=== PATIENT | female | born 1975 | race Caucasian/White ===

== ENCOUNTER 2020-03-24 13:18 | Emergency (ER) | payer SELFPAY ==
[2020-03-24] MEDS ORDERED: LIDOCAINE 1% 20 ML MDV ONE (13:42)
--- NOTE | 2020-03-24 14:09 | EDPHYS ---
Physician Documentation [facility] Name: Shelley Ritter Age: 44 yrs Sex: Female : 1975 Arrival Date: 03/24/2020 Time: 13:22 Bed 5 Private MD: ED Physician Donato Francisco HPI: 03/24 14:04 This 44 yrs old Female presents to ER via Ambulatory with complaints of jr8 Abscess. 14:04 The patient presents with an abscess of the right leg. Description: The affected area jr8 is moderate sized, well demarcated, erythematous, fluctuant, warm. Onset: The symptoms/episode began/occurred gradually, 5 day(s) ago. Possible cause(s): unknown. Associated signs and symptoms: The patient has no apparent associated signs or symptoms. Modifying factors: the symptoms are alleviated by nothing, the symptoms are aggravated by walking, sitting, squeezing the lesion and expressing the contents, touching. Severity of symptoms: At their worst the symptoms were moderate, in the emergency department the symptoms are unchanged. The patient has not experienced similar symptoms in the past. The patient has not recently seen a physician. Historical: - Allergies: 13:32 Tylenol-Codeine #3; ll1 - PMHx: 13:32 Hypothyroidism; ll1 - PSHx: 13:32 None; ll1 - Immunization history:: Flu vaccine is not up to date. - Social history:: Smoking status: Patient reports the use of cigarette tobacco products, denies chronic smoking, but will smoke occasionally, Patient uses alcohol, only on a social basis. Patient/guardian denies using street drugs. ROS: 14:04 Eyes: Negative for injury, pain, redness, and discharge, ENT: Negative for injury, jr8 pain, and discharge, Neck: Negative for injury, pain, and swelling, Cardiovascular: Negative for chest pain, palpitations, and edema, Respiratory: Negative for shortness of breath, cough, wheezing, and pleuritic chest pain, Abdomen/GI: Negative for abdominal pain, nausea, vomiting, diarrhea, and constipation, Back: Negative for injury and pain, MS/Extremity: Negative for injury and deformity, Neuro: Negative for headache, weakness, numbness, tingling, and seizure. 14:04 Skin: Positive for erythema, swelling. Exam: 14:04 Eyes: Pupils equal round and reactive to light, extra-ocular motions intact. Lids and jr8 lashes normal. Conjunctiva and sclera are non-icteric and not injected. Cornea within normal limits. Periorbital areas with no swelling, redness, or edema. ENT: Nares patent. No nasal discharge, no septal abnormalities noted. Tympanic membranes are normal and external auditory canals are clear. Oropharynx with no redness, swelling, or masses, exudates, or evidence of obstruction, uvula midline. Mucous membranes moist. Neck: Trachea midline, no thyromegaly or masses palpated, and no cervical lymphadenopathy. Supple, full range of motion without nuchal rigidity, or vertebral point tenderness. No Meningismus. Cardiovascular: Regular rate and rhythm with a normal S1 and S2. No gallops, murmurs, or rubs. Normal PMI, no JVD. No pulse deficits. Respiratory: Lungs have equal breath sounds bilaterally, clear to auscultation and percussion. No rales, rhonchi or wheezes noted. No increased work of breathing, no retractions or nasal flaring. Abdomen/GI: Soft, non-tender, with normal bowel sounds. No distension or tympany. No guarding or rebound. No evidence of tenderness throughout. Back: No spinal tenderness. No costovertebral tenderness. Full range of motion. MS/ Extremity: Pulses equal, no cyanosis. Neurovascular intact. Full, normal range of motion. Neuro: Awake and alert, GCS 15, oriented to person, place, time, and situation. Cranial nerves II-XII grossly intact. Motor strength 5/5 in all extremities. Sensory grossly intact. Cerebellar exam normal. Normal gait. 14:04 Skin: abscess, that is moderate sized, approximately 5 cm(s), with fluctuance, that is mild, with induration, with surrounding cellulitis, that is mild. Vital Signs: 13:30 BP 125 / 89; Pulse 96; Resp 18; Temp 98.0; Pulse Ox 100% ; Pain 8/10; ll1 Procedures: 14:04 I \T\ D: Incision and drainage was performed for an abscess of the right medial aspect of jr8 right calf Prepped with Betadine, Anesthetized with 10 ml's 1% Lidocaine. Incised with #11 blade. Drained moderate amount purulent fluid. serosanguinous fluid. bloody fluid. Loculations removed. Abscess cavity explored. Packed with iodoform gauze, Dressing: sterile 4x4 gauze, the patient tolerated the procedure well. MDM: 13:23 Patient medically screened. jr8 14:04 Data reviewed: vital signs, nurses notes, and as a result, I will discharge patient. jr8 Data interpreted: Pulse oximetry: on room air is 100 %. Interpretation: normal. Counseling: I had a detailed discussion with the patient and/or guardian regarding: the historical points, exam findings, and any diagnostic results supporting the discharge/admit diagnosis, the need for outpatient follow up, a general surgeon, to return to the emergency department if symptoms worsen or persist or if there are any questions or concerns that arise at home. 03/24 14:07 Order name: Incision \T\ Drainage Setup; Complete Time: 14:07 jl7 Administered Medications: 13:45 Drug: Lidocaine (1 %) 1 application {Note: administered by LIANET Vance.} Volume: 20 ml; jl7 Route: Infiltration; 14:11 Drug: TORadol - Ketorolac 15 mg Route: IM; Site: left deltoid; jl7 Disposition: 17:29 Co-signature as Attending Physician, Donato Francisco MD I agree with the assessment and kdr plan of care. Disposition: 03/24/20 14:07 Discharged to Home. Impression: Cutaneous abscess of right lower limb. - Condition is Stable. - Discharge Instructions: Skin Abscess, Incision and Drainage. - Prescriptions for Bactrim DS 800- 160 mg Oral Tablet - take 1 tablet by ORAL route every 12 hours for 10 days; 20 tablet. - Medication Reconciliation Form, Thank You Letter, Antibiotic Education, Prescription Opioid Use form. - Follow up: Emergency Department; When: 48 Hours; Reason: Wound Recheck, Recheck today's complaints, Continuance of care, Re-evaluation by your physician. - Problem is new. - Symptoms have improved. Signatures: Donato Francisco MD MD [facility] Rajiv Gallegos PA PA jr8 Meri Shafer RN RN jl7 Hector Beckman RN RN ll1 Corrections: (The following items were deleted from the chart) 14:37 14:07 03/24/2020 14:07 Discharged to Home. Impression: Cutaneous abscess of right lower jl7 limb. Condition is Stable. Forms are Medication Reconciliation Form, Thank You Letter, Antibiotic Education, Prescription Opioid Use. Follow up: Emergency Department; When: 48 Hours; Reason: Wound Recheck, Recheck today's complaints, Continuance of care, Re-evaluation by your physician. Problem is new. Symptoms have improved. jr8
--- NOTE | 2020-03-24 14:09 | ER ---
Nurse's Notes [facility] Name: Shelley Ritter Age: 44 yrs Sex: Female : 1975 Arrival Date: 03/24/2020 Time: 13:22 Bed 5 Private MD: Diagnosis: Cutaneous abscess of right lower limb Presentation: 03/24 13:30 Chief complaint: Patient states: Right lower leg abscess for 4-5 days. No fever. + ll1 drainage. Coronavirus screen: Proceed with normal triage. Patient denies a cough. Patient denies shortness of breath or difficulty breathing. Patient denies measured and/or subjective temperature greater than 100.4F prior to today's visit. Patient denies travel on a cruise ship or to a country the [facility] currently lists as an affected area. Patient denies contact with known and/or suspected case of COVID-19. Ebola Screen: Patient denies travel to an Ebola-affected area in the 21 days before illness onset. Initial Sepsis Screen: Does the patient meet any 2 criteria? HR > 90 bpm. Yes Does the patient have a suspected source of infection? Yes: Skin breakdown/wound. Risk Assessment: Do you want to hurt yourself or someone else? Patient reports no desire to harm self or others. Onset of symptoms was March 19, 2020. 13:30 Method Of Arrival: Ambulatory ll1 13:30 Acuity: HUGO 4 ll1 Historical: - Allergies: 13:32 Tylenol-Codeine #3; ll1 - PMHx: 13:32 Hypothyroidism; ll1 - PSHx: 13:32 None; ll1 - Immunization history:: Flu vaccine is not up to date. - Social history:: Smoking status: Patient reports the use of cigarette tobacco products, denies chronic smoking, but will smoke occasionally, Patient uses alcohol, only on a social basis. Patient/guardian denies using street drugs. Screenin:25 Abuse screen: Denies threats or abuse. Denies injuries from another. Nutritional jl7 screening: No deficits noted. Tuberculosis screening: No symptoms or risk factors identified. Fall Risk None identified. Assessment: 13:25 General: Appears in no apparent distress. uncomfortable, Behavior is calm, cooperative, jl7 appropriate for age. Pain: Complains of pain in medial aspect of right calf Pain currently is 8 out of 10 on a pain scale. Neuro: Level of Consciousness is awake, alert, obeys commands, Oriented to person, place, time, situation. Cardiovascular: Patient's skin is warm and dry. Respiratory: Airway is patent Respiratory effort is even, unlabored, Respiratory pattern is regular, symmetrical. Derm: Skin is pink, warm \T\ dry. Abscess located on medial aspect of right calf is half dollar sized, is hot to touch, is red. Vital Signs: 13:30 BP 125 / 89; Pulse 96; Resp 18; Temp 98.0; Pulse Ox 100% ; Pain 8/10; ll1 ED Course: 13:22 Patient arrived in ED. mr 13:23 Meri Shafer, VIJAY is Primary Nurse. jared 13:23 Rajiv Gallegos PA is PHCP. jr8 13:23 Donato Francisco MD is Attending Physician. jr8 13:25 Patient has correct armband on for positive identification. Bed in low position. Call jl7 light in reach. Side rails up X 1. Pulse ox on. NIBP on. 13:31 Triage completed. ll1 13:32 Arm band placed on Patient placed in an exam room, on a stretcher. ll1 14:04 Assist provider with I \T\ D: of an abscess on right Calf Set up I\T\D tray. Performed by missael MARTINI Wound packed. iodoform gauze, Patient tolerated poorly. 14:37 Patient did not have IV access during this emergency room visit. jl7 Administered Medications: 13:45 Drug: Lidocaine (1 %) 1 application {Note: administered by LIANET Vance.} Volume: 20 ml; jared Route: Infiltration; 14:11 Drug: TORadol - Ketorolac 15 mg Route: IM; Site: left deltoid; jared Outcome: 14:07 Discharge ordered by . jr8 14:36 Discharged to home ambulatory. jl7 14:36 Condition: stable 14:36 Discharge instructions given to patient, Instructed on discharge instructions, follow up and referral plans. medication usage, Demonstrated understanding of instructions, follow-up care, medications, Prescriptions given X 1. 14:37 Patient left the ED. [email or web address] Signatures: Emilee Henry mr Rajiv Gallegos PA PA jr8 Meri Shafer RN RN jl7 Hector Beckman RN RN 1 Corrections: (The following items were deleted from the chart) 13:31 Chief complaint: jl7 jl7
[2020-03-24] MEDS ORDERED: KETOROLAC 30 MG/ML INJ ONE (14:15)
[2020-03-24 14:43] VITALS: BP 125/89; TEMP 98; O2SAT 100
== END 2020-03-24 14:37 | disposition home or self-care (01) ==
LOC: ER 13:18
PROC: 0J9N0ZZ Drainage of Right Lower Leg Subcutaneous Tissue and Fascia, Open Approach (ICD-10-PCS; principal; 2020-03-24)
DX: L02.415 Cutaneous abscess of right lower limb (principal); Z88.6 Allergy status to analgesic agent; F17.210 Nicotine dependence, cigarettes, uncomplicated
CPT/HCPCS: 96372; 99284

== ENCOUNTER 2020-05-19 15:05 | Emergency (ER) | payer SELFPAY, OTHER ==
--- NOTE | 2020-05-19 16:04 | ER ---
Nurse's Notes [facility] Name: Shelley Ritter Age: 44 yrs Sex: Female : 1975 Arrival Date: 05/19/2020 Time: 15:09 Bed 8 Private MD: Diagnosis: Dermatitis, unspecified Presentation: 05/19 15:11 Chief complaint: Patient states: Rash with itching to entire body for 3 days. Cough and ll1 SOB for 3 days. No fever. Coronavirus screen: Surgical mask placed on patient. Patient moved to private room, placed in contact and droplet isolation with eye protection until further assessment. Patient reports a cough. Patient reports shortness of breath or difficulty breathing. Patient denies measured and/or subjective temperature greater than 100.4F prior to today's visit. Patient denies travel on a cruise ship or to a country the [facility] currently lists as an affected area. Patient denies contact with known and/or suspected case of COVID-19. Ebola Screen: Patient denies travel to an Ebola-affected area in the 21 days before illness onset. Initial Sepsis Screen: Does the patient meet any 2 criteria? HR > 90 bpm. No. Patient's initial sepsis screen is negative. Does the patient have a suspected source of infection? Yes: Skin breakdown/wound. Risk Assessment: Do you want to hurt yourself or someone else? Patient reports no desire to harm self or others. Onset of symptoms was May 14, 2020. 15:11 Method Of Arrival: Ambulatory ll1 15:11 Acuity: HUGO 3 ll1 Historical: - Allergies: 15:13 Tylenol-Codeine #3; ll1 15:13 mayonaise; ll1 - PMHx: 15:13 Hypothyroidism; ll1 - PSHx: 15:13 None; ll1 - Immunization history:: Flu vaccine is not up to date. - Social history:: Smoking status: Patient reports the use of cigarette tobacco products, denies chronic smoking, but will smoke occasionally, Patient uses alcohol, only on a social basis. Patient/guardian denies using street drugs. Screenin:51 Abuse screen: Denies threats or abuse. Nutritional screening: No deficits noted. em Tuberculosis screening: No symptoms or risk factors identified. Fall Risk None identified. Assessment: 16:26 General: Appears in no apparent distress. uncomfortable, Behavior is calm, cooperative, ph appropriate for age, Denies fever. Pain: Complains of pain in right arm and left arm. Neuro: Level of Consciousness is awake, alert, obeys commands, Oriented to person, place, time, situation. Respiratory: Reports cough that is Airway is patent Respiratory effort is even, unlabored, Denies shortness of breath. Derm: Skin is healthy with good turgor, Skin is pink, warm \T\ dry. Rash noted that is macular, itchy, papular, red, urticaria, on right arm and left arm. Vital Signs: 15:11 Pulse 112; Resp 18; Temp 98.0; Pulse Ox 100% ; Pain 9/10; ll1 15:14 BP 100 / 67; ll1 ED Course: 15:09 Patient arrived in ED. ll1 15:13 Triage completed. ll1 15:14 Arm band placed on. 1 15:16 Haydee Zhao RN is Primary Nurse. ph 15:22 Cas Heard PA is PHCP. [facility] 15:22 Umesh Herrera MD is Attending Physician. [facility] 15:51 Patient has correct armband on for positive identification. Bed in low position. Call em light in reach. 16:27 No provider procedures requiring assistance completed. Patient did not have IV access ph during this emergency room visit. Administered Medications: 16:10 Drug: Decadron 10 mg Route: IM; Site: right deltoid; ph 16:25 Follow up: Response: No adverse reaction ph 16:20 Drug: hydrOXYzine 25 mg Route: PO; ph 16:25 Follow up: Response: No adverse reaction ph Outcome: 16:03 Discharge ordered by . [facility] 16:27 Discharged to home ambulatory. ph 16:27 Condition: good 16:27 Discharge instructions given to patient, Instructed on discharge instructions, follow up and referral plans. medication usage, Demonstrated understanding of instructions, follow-up care, medications, Prescriptions given X 2. 16:27 Patient left the ED. ph Signatures: Cas Heard PA PA jmm Munoz, Edgar, RN RN Haydee Zhao RN RN ph Lewis, Lynsay, RN RN 1 Corrections: (The following items were deleted from the chart) 15:21 15:11 Coronavirus screen: Proceed with normal triage. Patient reports a cough. Patient ll1 reports shortness of breath or difficulty breathing. Patient denies measured and/or subjective temperature greater than 100.4F prior to today's visit. Patient denies travel on a cruise ship or to a country the [facility] currently lists as an affected area. Patient denies contact with known and/or suspected case of COVID-19. ll1
--- NOTE | 2020-05-19 16:04 | EDPHYS ---
Physician Documentation [facility] Name: Shelley Ritter Age: 44 yrs Sex: Female : 1975 Arrival Date: 05/19/2020 Time: 15:09 Bed 8 Private MD: ED Physician Umesh Herrera HPI: 05/19 15:53 This 44 yrs old Female presents to ER via Ambulatory with complaints of Rash. jmm 15:53 The patient's rash thought to be caused by Dermatitis. The rash can be described as jmm erythematous. Onset: The symptoms/episode began/occurred gradually, 5 day(s) ago. Associated signs and symptoms: Pertinent positives: SOB, Pertinent negatives: swelling of lips, swelling of throat, swelling of tongue. This is a 44 year old female with a history of hypothyroidism that presents to the ED with complaints of diffuse rash beginning this past Sunday after pulling weeds. Patient has used OTC medications with no relief. Developed SOB today. Denies vomiting. . Historical: - Allergies: 15:13 Tylenol-Codeine #3; ll1 15:13 mayonaise; ll1 - PMHx: 15:13 Hypothyroidism; ll1 - PSHx: 15:13 None; ll1 - Immunization history:: Flu vaccine is not up to date. - Social history:: Smoking status: Patient reports the use of cigarette tobacco products, denies chronic smoking, but will smoke occasionally, Patient uses alcohol, only on a social basis. Patient/guardian denies using street drugs. ROS: 15:53 Constitutional: Negative for fever, chills, and weight loss, Cardiovascular: Negative jmm for chest pain, palpitations, and edema, Respiratory: Negative for shortness of breath, cough, wheezing, and pleuritic chest pain, Abdomen/GI: Negative for abdominal pain, nausea, vomiting, diarrhea, and constipation. 15:53 Skin: Positive for rash. 15:53 All other systems are negative. Exam: 15:53 Constitutional: This is a well developed, well nourished patient who is awake, alert, jmm and in no acute distress. Head/Face: atraumatic. Eyes: EOMI, no conjunctival erythema appreciated ENT: Moist Mucus Membranes Neck: Trachea midline, Supple Chest/axilla: Normal chest wall appearance and motion. Cardiovascular: Regular rate and rhythm. No edema appreciated Respiratory: Normal respirations, no respiratory distress appreciated Abdomen/GI: Non distended, soft Back: Normal ROM 15:53 MS/ Extremity: Moves all extremities, no obvious deformities appreciated, no edema noted to the lower extremities Neuro: Awake and alert, normal gait Psych: Behavior is normal, Mood is normal, Patient is cooperative and pleasant 15:53 Skin: contact dermatitis, and is diffusely located. Vital Signs: 15:11 Pulse 112; Resp 18; Temp 98.0; Pulse Ox 100% ; Pain 9/10; ll1 15:14 BP 100 / 67; ll1 MDM: 15:48 Patient medically screened. [facility] 16:01 Data reviewed: vital signs, nurses notes. Counseling: I had a detailed discussion with sherron the patient and/or guardian regarding: the historical points, exam findings, and any diagnostic results supporting the discharge/admit diagnosis, the need for outpatient follow up, to return to the emergency department if symptoms worsen or persist or if there are any questions or concerns that arise at home. ED course: Patient is alert and non toxic in appearance in the ED. Patient is advised to follow up with pcp and otherwise given strict return precautions. Patient understood and agrees with the plan of care. . Administered Medications: 16:10 Drug: Decadron 10 mg Route: IM; Site: right deltoid; ph 16:25 Follow up: Response: No adverse reaction ph 16:20 Drug: hydrOXYzine 25 mg Route: PO; ph 16:25 Follow up: Response: No adverse reaction ph Disposition: 16:40 Co-signature as Attending Physician, Umesh Herrera MD. rn Disposition: 05/19/20 16:03 Discharged to Home. Impression: Dermatitis, unspecified. - Condition is Stable. - Discharge Instructions: Contact Dermatitis. - Prescriptions for Hydroxyzine HCl 25 mg Oral Tablet - take 1 tablet by ORAL route every 6 hours As needed; 30 tablet. Prednisone 20 mg Oral Tablet - take 1 tablet by ORAL route once daily for 12 days Please take 3 tabs a day for 3 days, then 2 tabs a day for 3 days, then 1 tab a day for 3 days, then 1/2 tab a day for 3 days; 20 tablet. - Medication Reconciliation Form, Thank You Letter, Antibiotic Education, Prescription Opioid Use form. - Follow up: Private Physician; When: 2 - 3 days; Reason: Recheck today's complaints, Continuance of care, Re-evaluation by your physician. Signatures: Cas Heard PA PA jmm Nieto, Roman, MD MD rn Pavel, VIJAY Hubbard RN ph Hector Beckman RN RN ll1 Corrections: (The following items were deleted from the chart) 16:27 16:03 05/19/2020 16:03 Discharged to Home. Impression: Dermatitis, unspecified. ph Condition is Stable. Forms are Medication Reconciliation Form, Thank You Letter, Antibiotic Education, Prescription Opioid Use. Follow up: Private Physician; When: 2 - 3 days; Reason: Recheck today's complaints, Continuance of care, Re-evaluation by your physician. sherron
[2020-05-19] MEDS ORDERED: dexAMETHasone 10 MG/ML VIAL ONE (16:19)
[2020-05-19] MEDS ORDERED: hydrOXYzine HCL 25 MG TAB ONE (16:27)
[2020-05-19 19:03] VITALS: TEMP 98; O2SAT 100
[2020-05-19 19:05] VITALS: BP 100/67
== END 2020-05-19 16:27 | disposition home or self-care (01) ==
LOC: ER 15:05
DX: L30.9 Dermatitis, unspecified (principal); E03.9 Hypothyroidism, unspecified; F17.210 Nicotine dependence, cigarettes, uncomplicated; Z88.5 Allergy status to narcotic agent; Z91.018 Allergy to other foods
CPT/HCPCS: 96372; 99283; J1100

== ENCOUNTER 2022-04-25 11:45 | Emergency (ER) | payer SELFPAY ==
[2022-04-25] MEDS ORDERED: TETANUS & DIPHTHERIA TOX,ADULT 0.5 ML VIAL ONE (12:35)
[2022-04-25] MEDS ORDERED: LIDOCAINE 1% MPF 5 ML VIAL ONE (12:35)
--- NOTE | 2022-04-25 13:35 | EDPHYS ---
Physician Documentation [facility] Name: Shelley Ritter Age: 46 yrs Sex: Female : 1975 Arrival Date: 04/25/2022 Time: 12:02 Bed 16 Private MD: ED Physician Alex Echeverria HPI: 04/25 12:27 This 46 yrs old Female presents to ER via EMS with complaints of abscess to right pm1 buttocks. 12:27 The patient presents with an abscess of the right gluteus josué. Description: raised. pm1 Onset: The symptoms/episode began/occurred 3 day(s) ago. Possible cause(s): unknown. Associated signs and symptoms: Pertinent positives: swelling, Pertinent negatives: discharge, drainage, erythema, fever. Modifying factors: the symptoms are alleviated by nothing, the symptoms are aggravated by sitting, squeezing the lesion and expressing the contents, touching. Severity of symptoms: in the emergency department the symptoms are actually worse. The patient has experienced a previous episode, last year, right lower leg. The patient has not recently seen a physician. Patient and her significant other were squatting in a home that was unlocked at the front door. Police remove the patient's from the house and the police officers called the ambulance for a couple who were complaining of right chronic leg wounds due to lymphedema and right buttocks abscess. The patient is currently complaining of right buttocks abscess present for 3 days. . Historical: - Allergies: 12:32 mayonaise; ph 12:32 Tylenol-Codeine #3; ph - PMHx: 12:32 Hypothyroidism; ph - Immunization history:: Adult Immunizations unknown. - Social history:: Smoking status: Reported history of juuling and/or vaping. ROS: 12:39 Constitutional: Negative for fever, chills, and weight loss, Cardiovascular: Negative pm1 for chest pain, palpitations, and edema, Respiratory: Negative for shortness of breath, cough, wheezing, and pleuritic chest pain, Abdomen/GI: Negative for abdominal pain, nausea, vomiting, diarrhea, and constipation, MS/Extremity: Negative for injury and deformity. 12:39 Neuro: Negative for headache, weakness, numbness, tingling, and seizure. 12:39 Skin: Positive for swelling, possible abscess to right buttocks. 12:39 All other systems are negative. Exam: 12:39 Constitutional: This is a well developed, well nourished patient who is awake, alert, pm1 and in no acute distress. Head/Face: Normocephalic, atraumatic. 12:39 MS/ Extremity: Pulses equal, no cyanosis. Neurovascular intact. Full, normal range of motion. 12:39 Cardiovascular: Exam negative for acute changes, Rate: normal, Rhythm: regular, Pulses: no pulse deficits are appreciated. 12:39 Respiratory: Exam negative for acute changes, respiratory distress, shortness of breath. 13:27 Skin: Appearance: normal except for affected area, phlegmon. No abscess. Needle pm1 aspiration negative and wound deroofed and discharge present with expressing. 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 Vital Signs: 12:10 BP 158 / 99; Pulse 76; Resp 18; Temp 98.0; Pulse Ox 99% on R/A; Weight 62.14 kg; Height ph 5 ft. 3 in. (160.02 cm); 14:30 BP 142 / 89; Pulse 72; Resp 18; Temp 98.0; Pulse Ox 99% on R/A; ph 12:10 Body Mass Index 24.27 (62.14 kg, 160.02 cm) ph MDM: 12:06 Patient medically screened. pm1 13:27 Data reviewed: vital signs. Data interpreted: Pulse oximetry: on room air is 99 %. pm1 Interpretation: normal. Counseling: I had a detailed discussion with the patient and/or guardian regarding: the historical points, exam findings, and any diagnostic results supporting the discharge/admit diagnosis, the need for outpatient follow up, a family practitioner, to return to the emergency department if symptoms worsen or persist or if there are any questions or concerns that arise at home. Administered Medications: 14:00 Drug: Tetanus-Diphtheria Toxoid Adult 0.5 ml {Termite Inspector: [employer]. Exp: ph 02/04/2024. Lot #: [id number]. } Route: IM; Site: left deltoid; 14:30 Follow up: Response: No adverse reaction ph 14:31 Not Given (Other Intervention Used): Lidocaine (1 %) 5 ml 5 ml Infiltration once; to ph bedside Disposition: 22:01 Co-signature as Attending Physician, Alex Echeverria DO I was immediately available on-site ms3 in the Emergency Department for consultation in the care of the patient. . Disposition Summary: 04/25/22 13:34 Discharge Ordered Location: Home pm1 Problem: new pm1 Symptoms: have improved pm1 Condition: Stable pm1 Diagnosis - Phlegmon, left buttocks pm1 Followup: pm1 - With: Emergency Department - When: As needed - Reason: Recheck today's complaints, Continuance of care, Re-evaluation by your physician Followup: pm1 - With: Private Physician - When: 2 - 3 days - Reason: Recheck today's complaints, Continuance of care, Re-evaluation by your physician Discharge Instructions: - Discharge Summary Sheet pm1 - Skin Abscess pm1 Forms: - Medication Reconciliation Form pm1 - Thank You Letter pm1 - Antibiotic Education pm1 - Prescription Opioid Use pm1 Prescriptions: - Bactrim DS 800-160 mg Oral Tablet - take 1 tablet by ORAL route every 12 hours for 10 days; 20 tablet; Refills: 0, pm1 Product Selection Permitted - Diclofenac Sodium 75 mg Oral tablet,delayed release (DR/EC) - take 1 tablet by ORAL route 2 times per day As needed; 30 tablet; Refills: 0, pm1 Product Selection Permitted Signatures: Haydee Zhao, RN RN Diego Choi NP BLEACHING MACHINE OPERATOR pm1 Alex Echeverria DO DO ms3
--- NOTE | 2022-04-25 13:35 | ER ---
Nurse's Notes [facility] Name: Shelley Ritter Age: 46 yrs Sex: Female : 1975 Arrival Date: 04/25/2022 Time: 12:02 Bed 16 Private MD: Diagnosis: Phlegmon, left buttocks Presentation: 04/25 12:10 Chief complaint: EMS states: EMS called by PD who found pt and SO staying in abandoned apartment, c/o abscess to R buttock, VSS. Coronavirus screen: Vaccine status: Patient reports receiving the 2nd dose of the covid vaccine. Ebola Screen: No symptoms or risks identified at this time. Initial Sepsis Screen: Does the patient meet any 2 criteria? No. Patient's initial sepsis screen is negative. Does the patient have a suspected source of infection? No. Patient's initial sepsis screen is negative. Risk Assessment: Do you want to hurt yourself or someone else? Patient reports no desire to harm self or others. Onset of symptoms was April 25, 2022. 12:10 Method Of Arrival: EMS: [facility] ph 12:10 Acuity: HUGO 4 ph Triage Assessment: 12:33 General: Appears in no apparent distress. Behavior is cooperative, appropriate for age, ph anxious. Pain: Complains of pain in right gluteus josué. Neuro: No deficits noted. Respiratory: No deficits noted. Derm: Skin is healthy with good turgor, Skin is pink, warm \T\ dry. Abscess located on right gluteus josué is quarter sized, has no drainage, is red, is raised. Musculoskeletal: Circulation, motion, and sensation intact. Range of motion: intact in all extremities. Historical: - Allergies: 12:32 mayonaise; ph 12:32 Tylenol-Codeine #3; ph - PMHx: 12:32 Hypothyroidism; ph - Immunization history:: Adult Immunizations unknown. - Social history:: Smoking status: Reported history of juuling and/or vaping. Screenin:32 Abuse screen: Denies threats or abuse. Denies injuries from another. Nutritional ph screening: No deficits noted. Tuberculosis screening: No symptoms or risk factors identified. Fall Risk None identified. Assessment: 13:30 General: SEE TRIAGE ASSESSMENT. ph Vital Signs: 12:10 BP 158 / 99; Pulse 76; Resp 18; Temp 98.0; Pulse Ox 99% on R/A; Weight 62.14 kg; Height ph 5 ft. 3 in. (160.02 cm); 14:30 BP 142 / 89; Pulse 72; Resp 18; Temp 98.0; Pulse Ox 99% on R/A; ph 12:10 Body Mass Index 24.27 (62.14 kg, 160.02 cm) ph ED Course: 12:02 Patient arrived in ED. iw 12:03 Diego Garrett NP is PHCP. pm1 12:03 Alex Echeverria DO is Attending Physician. pm1 12:10 Haydee Zhao RN is Primary Nurse. ph 12:32 Triage completed. ph 12:32 Arm band placed on Patient placed in an exam room. ph 12:33 Patient has correct armband on for positive identification. Bed in low position. Call light in reach. 13:00 Assist provider with I \T\ D: of an abscess on left buttock Set up I\T\D tray. Performed by Diego Garrett NP Dressing with 4X4s, Patient tolerated poorly. Patient did not have IV access during this emergency room visit. Administered Medications: 14:00 Drug: Tetanus-Diphtheria Toxoid Adult 0.5 ml {Orange [employer]er: [employer]. Exp: ph 02/04/2024. Lot #: [id number]. } Route: IM; Site: left deltoid; 14:30 Follow up: Response: No adverse reaction ph 14:31 Not Given (Other Intervention Used): Lidocaine (1 %) 5 ml 5 ml Infiltration once; to bedside Medication: 12:33 VIS not applicable for this client. ph Outcome: 13:34 Discharge ordered by . pm1 14:30 Discharged to home ambulatory. ph 14:30 Condition: good 14:30 Discharge instructions given to patient, Instructed on discharge instructions, follow up and referral plans. medication usage, Demonstrated understanding of instructions, follow-up care, medications, Prescriptions given X 2. 14:31 Patient left the ED. ph Signatures: Elis Francisco RN RN Haydee Zhao RN RN ph Marinas, Patrick, [employer] SALES SERVICE PROFESSIONAL pm1
[2022-04-25 14:39] VITALS: BP 158/99; TEMP 98; O2SAT 99
== END 2022-04-25 14:31 | disposition home or self-care (01) ==
LOC: ER 11:45
DX: L02.31 Cutaneous abscess of buttock (principal); Z88.5 Allergy status to narcotic agent; Z91.018 Allergy to other foods
CPT/HCPCS: 90471; 90714; 99284

== ENCOUNTER 2023-05-13 02:01 | Emergency (ER) | payer SELFPAY ==
[2023-05-13] MEDS ORDERED: SMZ./TMP. 800/160 MG TABLET ONE (03:52)
[2023-05-13] MEDS ORDERED: HYDROCODONE/APAP 10/325 TAB ONE (03:52)
[2023-05-13] MEDS ORDERED: CEFTRIAXONE 1000 MG/VIAL ONE (03:52)
[2023-05-13] MEDS ORDERED: WATER FOR INJ,STERILE 10 ML ONE (03:52)
[2023-05-13] MEDS ORDERED: ONDANSETRON 4 MG (ODT) TAB ONE (03:52)
[2023-05-13] MEDS ORDERED: LIDOCAINE 1% MPF 30 ML VIAL ONE (03:54)
[2023-05-13] MEDS ORDERED: IBUPROFEN 400 MG TAB ONE (03:54)
--- NOTE | 2023-05-13 04:01 | EDPHYS ---
Physician Documentation [facility] Name: Shelley Ritter Age: 47 yrs Sex: Female : 1975 Arrival Date: 05/13/2023 Time: 02:01 Bed 13 Private MD: ED Physician Elfego Tavarez HPI: 05/13 03:34 This 47 yrs old Female presents to ER via Ambulatory with complaints of sp4 Insect Bite. 03:41 47-year-old female presents with left lower extremity cellulitis around left ankle sp4 associated with purulent drainage from several infected insect bites. Patient states that this is happened several days ago. 03:42 . sp4 Historical: - Allergies: 03:13 Tylenol-Codeine #3; as6 03:13 mayonaise; as6 - PMHx: 03:13 Hypothyroidism; as6 - PSHx: 03:13 None; as6 - Immunization history:: Client reports having NOT received the Covid vaccine. - Social history:: Smoking status: Reported history of juuling and/or vaping. - Family history:: not pertinent. ROS: 03:42 Constitutional: Negative for fever, chills, and weight loss, MS/Extremity: Negative for sp4 injury and deformity, positive for left ankle redness, left ankle pain. 03:42 All other systems are negative. Exam: 03:42 Constitutional: This is a well developed, well nourished patient who is awake, alert, sp4 and in no acute distress. Head/Face: Normocephalic, atraumatic. Eyes: Pupils equal round and reactive to light, extra-ocular motions intact. Lids and lashes normal. Conjunctiva and sclera are not injected. Cornea within normal limits. Periorbital areas with no swelling, redness, or edema. ENT: Nares patent. No nasal discharge, no septal abnormalities noted. Tympanic membranes are normal and external auditory canals are clear. Oropharynx with no redness, swelling, or masses, exudates, or evidence of obstruction, uvula midline. Mucous membranes moist. Neck: Trachea midline, no thyromegaly or masses palpated, and no cervical lymphadenopathy. Supple, full range of motion without nuchal rigidity, or vertebral point tenderness. Chest/axilla: Normal chest wall appearance and motion. Nontender with no deformity. No lesions are appreciated. Cardiovascular: Regular rate and rhythm with a normal S1 and S2. No gallops, murmurs, or rubs. Normal PMI, no JVD. No pulse deficits. Respiratory: Lungs have equal breath sounds bilaterally, clear to auscultation and percussion. No rales, rhonchi or wheezes noted. No increased work of breathing, no retractions or nasal flaring. Abdomen/GI: Soft, non-tender, with normal bowel sounds. No distension or tympany. No guarding or rebound. No evidence of tenderness throughout. Back: No spinal tenderness. No costovertebral tenderness. Skin: Warm, dry with normal turgor. Normal color with no rashes, no lesions, and no evidence of cellulitis. MS/ Extremity: Pulses equal, no cyanosis. Neurovascular intact. Full, normal range of motion. Left ankle abscess consisting of 4 infected insect bites Neuro: Awake and alert, GCS 15, oriented to person, place, time, and situation. Cranial nerves II-XII grossly intact. Motor strength 5/5 in all extremities. Sensory grossly intact. Psych: Awake, alert, with orientation to person, place and time. Moderate anxiety Vital Signs: 03:11 BP 115 / 70; Pulse 98; Resp 18 S; Temp 98.2(TE); Pulse Ox 100% on R/A; Weight 64.86 kg as6 (R); Height 5 ft. 3 in. (R); Pain 7/10; 04:27 BP 116 / 72; Pulse 92; Resp 17; Temp 98.5; Pulse Ox 99% on R/A; aa9 03:11 Body Mass Index 25.33 (64.86 kg, 160.02 cm) as6 03:11 Pain Scale: Adult as6 Procedures: 03:42 I \T\ D: Incision and drainage was performed for an abscess of the left anterior aspect sp4 of left ankle Prepped with Betadine, Anesthetized with 20 ml's 1% Lidocaine. Incised with #11 blade. Drained small amount purulent fluid. bloody fluid. Dressing: sterile 4x4 gauze, the patient tolerated the procedure well. MDM: 03:35 Patient medically screened. sp4 03:42 Differential Diagnosis Abscess, cellulitis, infected insect bite. Data reviewed: vital sp4 signs, nurses notes. ED course: We will provide Bactrim and Keflex and ibuprofen for pain by prescription. Administered Medications: 03:49 Drug: Rocephin (cefTRIAXone) IM 1 grams Route: IM; Site: left gluteus; aa9 04:08 Follow up: Response: No adverse reaction aa9 03:49 Drug: Trimethoprim-Sulfamethoxazole PO (160 mg-800 mg (DS) 1 tablet Route: PO; aa9 04:08 Follow up: Response: No adverse reaction aa9 03:49 Drug: [place] PO 10 mg-325 mg 1 tabs Route: PO; aa9 04:26 Follow up: Response: No adverse reaction aa9 03:49 Drug: Ondansetron PO 4 mg Route: PO; aa9 04:08 Follow up: Response: No adverse reaction aa9 03:49 Drug: Lidocaine Infiltration (1 %) 20 ml {Note: given by Daysi ECHEVARRIA.} Volume: 20 ml; aa9 Route: Infiltration; 03:49 Drug: Ibuprofen PO 800 mg Route: PO; aa9 04:08 Follow up: Response: No adverse reaction aa9 Disposition Summary: 05/13/23 04:01 Discharge Ordered Location: Home sp4 Problem: new sp4 Symptoms: have improved sp4 Condition: Stable sp4 Diagnosis - Cutaneous abscess of left lower limb sp4 - Left lower leg abscess, infected insect bite sp4 Followup: sp4 - With: Private Physician - When: 7 - 10 days - Reason: Recheck today's complaints Discharge Instructions: - Discharge Summary Sheet sp4 - Skin Abscess, [id number] sp4 Prescriptions: - Cephalexin 500 mg Oral Capsule - take 1 capsule by ORAL route every 8 hours for 10 days; 30 capsule; Refills: 0, sp4 Product Selection Permitted - Bactrim DS 800-160 mg Oral Tablet - take 1 tablet by ORAL route every 12 hours for 14 days; 28 tablet; Refills: 0, sp4 Product Selection Permitted Signatures: Joey Yadav RN RN [email or web address] Arleen Chung RN RN aa9 Elfego Tavarez MD MD sp4
--- NOTE | 2023-05-13 04:01 | ER ---
Nurse's Notes [facility] Name: Shelley Ritter Age: 47 yrs Sex: Female : 1975 Arrival Date: 05/13/2023 Time: 02:01 Bed 13 Private MD: Diagnosis: Cutaneous abscess of left lower limb;Left lower leg abscess, infected insect bite Presentation: 05/13 03:11 Chief complaint: Patient states: "I got bit by something about a week ago, I don't know as6 what, but the bite seems worse". Coronavirus screen: At this time, the client does not indicate any symptoms associated with coronavirus-19. Ebola Screen: No symptoms or risks identified at this time. Initial Sepsis Screen: Does the patient meet any 2 criteria? No. Patient's initial sepsis screen is negative. Does the patient have a suspected source of infection? No. Patient's initial sepsis screen is negative. Risk Assessment: Do you want to hurt yourself or someone else? Patient reports no desire to harm self or others. Onset of symptoms was May 06, 2023. 03:11 Method Of Arrival: Ambulatory as6 03:11 Acuity: HUGO 3 as6 Triage Assessment: 03:13 General: Appears in no apparent distress. Behavior is calm, cooperative. Pain: as6 Complains of pain in anterior aspect of left ankle. EENT: No deficits noted. No signs and/or symptoms were reported regarding the EENT system. Neuro: No deficits noted. Cardiovascular: No deficits noted. Respiratory: No deficits noted. GI: No deficits noted. No signs and/or symptoms were reported involving the gastrointestinal system. : No deficits noted. No signs and/or symptoms were reported regarding the genitourinary system. Derm:. Injury Description: Bite sustained to anterior aspect of left ankle caused by an unknown animal, is redness and swelling noted. 03:47 Bite description: bite sustained to left lateral ankle by an unknown animal, animal aa9 information: vaccination(s) is unknown. Historical: - Allergies: 03:13 Tylenol-Codeine #3; as6 03:13 mayonaise; as6 - PMHx: 03:13 Hypothyroidism; as6 - PSHx: 03:13 None; as6 - Immunization history:: Client reports having NOT received the Covid vaccine. - Social history:: Smoking status: Reported history of juuling and/or vaping. - Family history:: not pertinent. Screenin:47 Abuse screen: Denies threats or abuse. Denies injuries from another. Nutritional aa9 screening: No deficits noted. Tuberculosis screening: No symptoms or risk factors identified. 04:27 [facility] ED Fall Risk Assessment (Adult) History of falling in the last 3 months, aa9 including since admission No falls in past 3 months (0 pts) Confusion or Disorientation No (0 pts) Intoxicated or Sedated No (0 pts) Impaired Gait No (0 pts) Mobility Assist Device Used No (0 pt) Altered Elimination No (0 pt) Score/Fall Risk Level 0 - 2 = Low Risk Oriented to surroundings, Maintained a safe environment, Educated pt \\T\\ family on fall prevention, incl call for assistance when getting out of bed. Assessment: 03:46 Reassessment: Daysi ECHEVARRIA at bedside. aa9 03:48 Derm: Skin is healthy with good turgor, Skin is pink, warm \\T\\ dry. aa9 04:27 Reassessment: Patient appears in no apparent distress at this time. Patient and/or aa9 family updated on plan of care and expected duration. Pain level reassessed. Patient is alert, oriented x 3, equal unlabored respirations, skin warm/dry/pink. Patient states symptoms have improved. Vital Signs: 03:11 BP 115 / 70; Pulse 98; Resp 18 S; Temp 98.2(TE); Pulse Ox 100% on R/A; Weight 64.86 kg as6 (R); Height 5 ft. 3 in. (R); Pain 7/10; 04:27 BP 116 / 72; Pulse 92; Resp 17; Temp 98.5; Pulse Ox 99% on R/A; aa9 03:11 Body Mass Index 25.33 (64.86 kg, 160.02 cm) as6 03:11 Pain Scale: Adult as6 ED Course: 02:05 Patient arrived in ED. ja2 03:13 Triage completed. as6 03:13 Arm band placed on. as6 03:29 Arleen Chung, RN is Primary Nurse. aa9 03:34 Elfego Tavarez MD is Attending Physician. sp4 03:47 Patient has correct armband on for positive identification. Bed in low position. Call aa9 light in reach. Pulse ox on. NIBP on. 04:26 No provider procedures requiring assistance completed. Patient did not have IV access aa9 during this emergency room visit. Administered Medications: 03:49 Drug: Rocephin (cefTRIAXone) IM 1 grams Route: IM; Site: left gluteus; aa9 04:08 Follow up: Response: No adverse reaction aa9 03:49 Drug: Trimethoprim-Sulfamethoxazole PO (160 mg-800 mg (DS) 1 tablet Route: PO; aa9 04:08 Follow up: Response: No adverse reaction aa9 03:49 Drug: [place] PO 10 mg-325 mg 1 tabs Route: PO; aa9 04:26 Follow up: Response: No adverse reaction aa9 03:49 Drug: Ondansetron PO 4 mg Route: PO; aa9 04:08 Follow up: Response: No adverse reaction aa9 03:49 Drug: Lidocaine Infiltration (1 %) 20 ml {Note: given by Daysi ECHEVARRIA.} Volume: 20 ml; aa9 Route: Infiltration; 03:49 Drug: Ibuprofen PO 800 mg Route: PO; aa9 04:08 Follow up: Response: No adverse reaction aa9 Medication: 04:27 VIS not applicable for this client. aa9 Outcome: 04:01 Discharge ordered by . sp4 04:26 Discharged to home ambulatory. aa9 04:26 Condition: stable 04:26 Discharge instructions given to patient, Instructed on discharge instructions, follow up and referral plans. medication usage, Demonstrated understanding of instructions, follow-up care, medications. 04:27 Patient left the ED. aa9 Signatures: Damaris Hinojosa Ashby, RN RN as6 Arleen Chung RN RN aa9 Elfego Tavarez MD MD sp4
[2023-05-13 04:37] VITALS: BP 116/72; TEMP 98.5; O2SAT 99
== END 2023-05-13 04:27 | disposition home or self-care (01) ==
LOC: ER 02:01
DX: L03.116 Cellulitis of left lower limb (principal); S90.562A Insect bite (nonvenomous), left ankle, initial encounter
CPT/HCPCS: 96372; 99284; J0696; J2001; Q0162

== ENCOUNTER 2024-02-27 22:58 | Emergency (ER) | payer SELFPAY ==
[2024-02-28] MEDS ORDERED: SMZ./TMP. 800/160 MG TABLET ONE (00:01)
[2024-02-28] MEDS ORDERED: LIDOCAINE 1% MPF 5 ML VIAL ONE (00:01)
[2024-02-28] MEDS ORDERED: CEFTRIAXONE 1000 MG/VIAL ONE (00:01)
[2024-02-28] MEDS ORDERED: KETOROLAC 30 MG/ML INJ ONE (00:01)
--- NOTE | 2024-02-28 00:22 | ER ---
Nurse's Notes [facility] Name: Shelley Ritter Age: 48 yrs Sex: Female : 1975 Arrival Date: 02/27/2024 Time: 22:58 Bed 20 Private MD: Diagnosis: Cutaneous abscess of buttock Presentation: 02/26 23:15 Chief complaint: Patient states: Cyst or spider bite to the back of right thigh onset 2 cm10 weeks ago. Pt states that the pain got worse 5 days ago. Coronavirus screen: Client denies travel out of the [place] in the last 14 days. At this time, the client does not indicate any symptoms associated with coronavirus-19. Ebola Screen: Patient denies travel to an Ebola-affected area in the 21 days before illness onset. No symptoms or risks identified at this time. Initial Sepsis Screen: Does the patient meet any 2 criteria? No. Patient's initial sepsis screen is negative. Does the patient have a suspected source of infection? No. Patient's initial sepsis screen is negative. Risk Assessment: Do you want to hurt yourself or someone else? Patient reports no desire to harm self or others. Onset of symptoms was February 27, 2024. 23:15 Method Of Arrival: Ambulatory cm10 23:15 Acuity: HUGO 4 cm10 Triage Assessment: 23:16 General: Appears in no apparent distress. uncomfortable, Behavior is calm, cooperative. cm10 Pain: Complains of pain in right gluteal fold. Neuro: No deficits noted. Level of Consciousness is awake, alert, obeys commands, Oriented to person, place, time, situation. Historical: - Allergies: 23:15 mayonaise; cm10 23:15 Tylenol-Codeine #3; cm10 - PMHx: 23:15 Hypothyroidism; cm10 - Immunization history:: Adult Immunizations up to date. - Infectious Disease History:: Denies. - Social history:: Smoking status: Patient reports the use of cigarette tobacco products, denies chronic smoking, but will smoke occasionally. Screenin:46 [facility] ED Fall Risk Assessment (Adult) History of falling in the last 3 months, tm6 including since admission No falls in past 3 months (0 pts) Confusion or Disorientation No (0 pts) Intoxicated or Sedated No (0 pts) Impaired Gait No (0 pts) Mobility Assist Device Used No (0 pt) Altered Elimination No (0 pt) Score/Fall Risk Level 0 - 2 = Low Risk Oriented to surroundings, Maintained a safe environment. Abuse screen: Denies threats or abuse. Denies injuries from another. Nutritional screening: No deficits noted. Tuberculosis screening: No symptoms or risk factors identified. Assessment: 23:46 General: Appears distressed, Behavior is cooperative, anxious. Pain: Complains of pain tm6 in right gluteal fold Pain does not radiate. Pain began two weeks ago. Neuro: Level of Consciousness is awake, alert, obeys commands, Oriented to person, place, time, situation. Cardiovascular: No deficits noted. Patient's skin is warm and dry. Respiratory: Airway is patent Respiratory effort is even, unlabored, Respiratory pattern is regular, symmetrical. GI: No signs and/or symptoms were reported involving the gastrointestinal system. Abdomen is flat, non-distended. : No signs and/or symptoms were reported regarding the genitourinary system. EENT: No signs and/or symptoms were reported regarding the EENT system. Derm: Abscess located on right gluteal fold is golf ball sized, has no drainage, is red, is raised. Musculoskeletal: No signs and/or symptoms reported regarding the musculoskeletal system. 02/27 00:28 Reassessment: Patient and/or family updated on plan of care and expected duration. Pain tm6 level reassessed. Patient is alert, oriented x 3, equal unlabored respirations, skin warm/dry/pink. 00:35 Reassessment: Patient and/or family updated on plan of care and expected duration. Pain tm6 level reassessed. Patient is alert, oriented x 3, equal unlabored respirations, skin warm/dry/pink. Vital Signs: 02/26 23:15 BP 113 / 86; Pulse 85; Resp 18; Temp 97.8(O); Pulse Ox 100% on R/A; Weight 64.86 kg; cm10 Height 5 ft. 3 in. ; Pain 10/10; 23:50 BP 105 / 44; Pulse 82; Pulse Ox 100% on R/A; Pain 7/10; tm6 02/27 00:35 BP 102 / 70; Pulse 82; Resp 20; Temp 97.7(TE); Pulse Ox 100% on R/A; Pain 4/10; tm6 02/26 23:15 Body Mass Index 25.33 (64.86 kg, 160.02 cm) cm10 02/26 23:15 Pain Scale: Adult cm10 23:50 Pain Scale: Adult tm6 02/27 00:35 Pain Scale: Adult tm6 ED Course: 02/26 23:01 Patient arrived in ED. im 23:10 Bre aMgaña FNP-C [facility]. kb 23:11 Elfego Tavarez MD is Attending Physician. kb 23:16 Triage completed. cm10 23:17 Arm band placed on right wrist. Patient placed in waiting room. cm10 23:46 Odalis Enriquez, RN is Primary Nurse. tm6 23:46 Patient has correct armband on for positive identification. Placed in gown. Bed in low tm6 position. Call light in reach. Side rails up X2. Provided Education on: plan of care. Client placed on continuous cardiac and pulse oximetry monitoring. NIBP monitoring applied. Pulse ox on. NIBP on. Door closed. Noise minimized. Lights dimmed. Warm blanket given. Pillow given. 02/27 00:27 Assist provider with I \T\ D: of an abscess on right buttocks Set up I\T\D tray. Performed tm 6 by Bre ROCHE Dressing with 4X4s, tape Patient tolerated well. Patient did not have IV access during this emergency room visit. Administered Medications: 00:09 Drug: Ketorolac IM 30 mg IM once Route: IM; Site: right deltoid; tm6 00:26 Drug: Rocephin (cefTRIAXone) IM 1 grams IM once Route: IM; Site: right vastus lateralis;tm6 00:26 Drug: Lidocaine Infiltration (1 %) 1 vials 5 ml Infiltration once; to bedside {Note: tm6 administered by CLOUD SYSTEMS ARCHITECT.} Volume: 5 ml; Route: Infiltration; 00:27 Drug: Trimethoprim-Sulfamethoxazole PO (160 mg-800 mg (DS) 1 tablet PO once Route: PO; tm6 Medication: 02/26 23:46 VIS not applicable for this client. tm6 Outcome: 02/27 00:22 Discharge ordered by . kb 00:36 Discharged to home ambulatory, with family, tm6 00:36 Condition: stable 00:36 Discharge instructions given to patient, family, Instructed on discharge instructions, follow up and referral plans. medication usage, Demonstrated understanding of instructions, follow-up care, medications, Prescriptions given X 1, 00:37 Patient left the ED. tm6 Signatures: Bre Magaña FNP-C FNP-Ckb Mendoza, Itzel im Martinez, Clarissa RN RN cm10 Odalis Enriquez RN RN tm6
--- NOTE | 2024-02-28 00:22 | EDPHYS ---
Physician Documentation [facility] Name: Shelley Ritter Age: 48 yrs Sex: Female : 1975 Arrival Date: 02/27/2024 Time: 22:58 Bed 20 Private MD: ED Physician Elfego Tavarez HPI: 02/26 23:15 This 48 yrs old Female presents to ER via Unassigned with complaints of Cyst. kb 23:16 Pt is a 48 year old female who presents with abscess to back of right thigh that kb started about 2 weeks ago and got worse over the last 5 days. States she has been living outside so she isn't sure what may have caused it. Denies fever, n/v/d. . Historical: - Allergies: 23:15 mayonaise; cm10 23:15 Tylenol-Codeine #3; cm10 - PMHx: 23:15 Hypothyroidism; cm10 - Immunization history:: Adult Immunizations up to date. - Infectious Disease History:: Denies. - Social history:: Smoking status: Patient reports the use of cigarette tobacco products, denies chronic smoking, but will smoke occasionally. ROS: 23:15 Constitutional: As per HPI kb Exam: 23:15 Constitutional: This is a well developed, well nourished patient who is awake, alert, kb and in no acute distress. Head/Face: Normocephalic, atraumatic. ENT: Moist Mucous membranes Cardiovascular: Regular rate Respiratory: Respirations even and unlabored. No increased work of breathing. Talking in full sentences MS/ Extremity: Pulses equal, no cyanosis. Neurovascular intact. Full, normal range of motion. Neuro: Awake and alert, GCS 15, oriented to person, place, time, and situation. Moves all extremities. Normal gait. 02/27 00:22 Skin: abscess, that is moderate sized, of the right gluteus josué, with drainage, kb with induration, Vital Signs: 02/26 23:15 BP 113 / 86; Pulse 85; Resp 18; Temp 97.8(O); Pulse Ox 100% on R/A; Weight 64.86 kg; cm10 Height 5 ft. 3 in. ; Pain 10/10; 23:50 BP 105 / 44; Pulse 82; Pulse Ox 100% on R/A; Pain 7/10; tm6 04/04 00:35 BP 102 / 70; Pulse 82; Resp 20; Temp 97.7(TE); Pulse Ox 100% on R/A; Pain 4/10; tm6 02/26 23:15 Body Mass Index 25.33 (64.86 kg, 160.02 cm) cm10 02/26 23:15 Pain Scale: Adult cm10 23:50 Pain Scale: Adult tm6 02/27 00:35 Pain Scale: Adult tm6 Procedures: 00:20 I \T\ D: Incision and drainage was performed for an abscess of the right gluteus josué kb Prepped with Betadine, Anesthetized with 2 ml's 1% Lidocaine. Incised with #11 blade. Drained moderate amount purulent fluid. Dressing: sterile 4x4 gauze, the patient tolerated the procedure well. MDM: 02/26 23:11 Patient medically screened. kb 23:15 Differential diagnosis: abscess, cellulitis. Data reviewed: vital signs, nurses notes. kb 02/27 00:20 Differential diagnosis: abscess, cellulitis, insect bite. Care significantly affected kb by the following Social Determinants of Health: Inadequate housing. Counseling: I had a detailed discussion with the patient and/or guardian regarding the historical points, exam findings, and any diagnostic results supporting the discharge/admit diagnosis, the need for outpatient follow up, a family practitioner, to return to the emergency department if symptoms worsen or persist or if there are any questions or concerns that arise at home. 02/26 23:57 Order name: I\T\D Setup; Complete Time: 23:59 kb Administered Medications: 00:09 Drug: Ketorolac IM 30 mg IM once Route: IM; Site: right deltoid; tm6 00:26 Drug: Rocephin (cefTRIAXone) IM 1 grams IM once Route: IM; Site: right vastus lateralis;tm6 00:26 Drug: Lidocaine Infiltration (1 %) 1 vials 5 ml Infiltration once; to bedside {Note: tm6 administered by PHYSICAL EDUCATION SPECIALIST.} Volume: 5 ml; Route: Infiltration; 00:27 Drug: Trimethoprim-Sulfamethoxazole PO (160 mg-800 mg (DS) 1 tablet PO once Route: PO; tm6 Disposition: 03:17 Co-signature as Attending Physician, Elfego Tavarez MD I agree with the assessment sp4 and plan of care. I reviewed the patient's care provided by the Advanced Practice Provider and agree with the diagnosis and treatment plan. Disposition Summary: 02/28/24 00:22 Discharge Ordered Notes: Location: Home kb Condition: Stable kb Diagnosis - Cutaneous abscess of buttock kb Followup: kb - With: Emergency Department - When: As needed - Reason: Worsening of condition Followup: kb - With: Private Physician - When: 2 - 3 days - Reason: Recheck today's complaints, Continuance of care, Re-evaluation by your physician Discharge Instructions: - Discharge Summary Sheet kb - Skin Abscess, Pcta-vo-Amog kb - Incision and Drainage, Care After kb Forms: - Medication Reconciliation Form kb - Thank You Letter kb - Antibiotic Education kb - Prescription Opioid Use kb - Patient Portal Instructions kb - Leadership Thank You Letter kb Prescriptions: - Bactrim DS 800-160 mg Oral Tablet - take 1 tablet ORAL route every 12 hours for 10 days; 20 tablet; Refills: 0, kb Product Selection Permitted Signatures: Bre Magaña, ELOISAC AVERY-Elfego Saldivar MD MD sp4 Rosio Altman RN RN cm10 Odalis Enriquez RN RN tm6
[2024-02-28 00:59] VITALS: BP 102/70; TEMP 97.7; O2SAT 100
== END 2024-02-28 00:37 | disposition home or self-care (01) ==
LOC: ER 22:58
PROC: 0H98XZZ Drainage of Buttock Skin, External Approach (ICD-10-PCS; principal; 2024-02-28)
DX: L02.31 Cutaneous abscess of buttock (principal)
CPT/HCPCS: 96372; 99284; J0696; J2001

== ENCOUNTER 2024-07-09 14:36 | Emergency (ER) | payer SELFPAY ==
[2024-07-09 15:16] LABS: Absolute Basophils 0.1 K/uL (0-0.5); Absolute Eosinophils 0.1 K/uL (0-0.5); Absolute Lymphocytes (CBC) 2.3 K/uL (0.7-4.9); Absolute Monocytes 0.8 K/uL (0.1-1.3); Absolute Neutrophil 5.9 K/uL (1.8-8.0); Basophils % 0.6 % (0-1.3); Eosinophils % 0.8 % (0-4.4); Hematocrit 36.7 % (36.0-45.0); Lymphocytes % 25.1 % (15.3-44.8); MCH 30.8 pg (27.0-35.0); MCHC 32.5 g/dL (32.0-36.0); MCV 94.5 fL (80-100); MPV 7.8 fL (7.6-11.3); Neutrophils % 64.5 % (41.7-73.7); Nucleated Red Blood Cells % 0.1 % (0-0); Platelets 388 thou/uL (152-406); RBC Red Blood Cell Count 3.89 M/uL (3.86-4.86); Red Cell Distribution Width 13.2 % (12.1-15.2)
[2024-07-09 15:21] LABS: Specific Gravity > 1.030 (1.005-1.030)
[2024-07-09 15:24] LABS: Specific Gravity > 1.030 (1.005-1.030); Urine Bacteria <20 /HPF (<20); Urine Bilirubin NEGATIVE (Negative); Urine Blood 1+ (Negative); Urine Clarity Turbid (Clear); Urine Color Yellow (Yellow); Urine Culture Reflex Order NOT NEEDED; Urine Glucose NEGATIVE (Negative); Urine Ketones NEGATIVE (Negative); Urine Microscopic Reflex YN ORDER UMIC; Urine Mucus 1+ /HPF (None Seen); Urine Nitrite NEGATIVE (Negative); Urine Protein 1+ (Negative); Urine Urobilinogen Normal (Normal); Urine WBC <5 /HPF (<5)
[2024-07-09 15:38] LABS: Albumin 3.5 g/dL (3.4-5.0); Albumin/Globulin Ratio 0.9 (1.1-1.8); Anion Gap 10.3 mEq/L (5.0-15.0); Bilirubin Total 0.4 mg/dL (0.2-1.0); Potassium 3.3 mEq/L (3.5-5.1); Protein, Total 7.5 g/dL (6.4-8.2); Thyroid Stimulating Hormone 1.39 uIU/mL (0.358-3.740)
--- NOTE | 2024-07-09 16:04 | EDPHYS ---
Physician Documentation [facility] Name: Shelley Ritter Age: 48 yrs Sex: Female : 1975 Arrival Date: 07/09/2024 Time: 14:36 Bed 13 Private MD: ED Physician Manoj Zurita HPI: 07/09 16:14 This 48 yrs old Female presents to ER via Ambulatory with complaints of Vomiting, kb Anxiety. 16:14 Pt is a 48 year old female who presents for headache, bodyaches, cramping to hands and kb feet, fatigue, malaise and increased stress for 3 months that has been getting worse. States she has a thyroid disorder and hasn't had medication in a long time so she is concerned about that. Also wants to make sure she is not . Denies fever, cough, congestion. 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 - Infectious Disease History:: Denies. - Social history:: Smoking status: Patient reports the use of cigarette tobacco products, smokes one pack cigarettes per day. Reported history of juuling and/or vaping. ROS: 14:47 Constitutional: As per HPI kb Exam: 14:47 Constitutional: This is a well developed, well nourished patient who is awake, alert, kb and in no acute distress. Head/Face: Normocephalic, atraumatic. ENT: Moist Mucous membranes Cardiovascular: Regular rate Respiratory: Respirations even and unlabored. No increased work of breathing. Talking in full sentences Abdomen/GI: Soft, non-tender. No distention Skin: Warm, dry with normal turgor. Normal color. MS/ Extremity: Pulses equal, no cyanosis. Neurovascular intact. Full, normal range of motion. Neuro: Awake and alert, GCS 15, oriented to person, place, time, and situation. Moves all extremities. Normal gait. 14:47 Psych: Behavior/mood is cooperative, anxious, Affect is animated, Vital Signs: 14:44 BP 124 / 75; Pulse 84; Resp 18; Temp 97.1; Pulse Ox 99% ; Weight 64.86 kg; Height 5 ft. dd2 3 in. ; 15:30 BP 94 / 58; Pulse 72; Resp 16; Pulse Ox 99% ; me1 16:00 BP 96 / 58; Pulse 74; Resp 16; Temp 98.1; Pulse Ox 100% on R/A; me1 14:44 Body Mass Index 25.33 (64.86 kg, 160.02 cm) dd2 MDM: 14:40 Patient medically screened. kb 14:48 Data reviewed: vital signs, nurses notes. kb 16:16 Differential Diagnosis anxiety, , thyroid disorder, abnormal electrolytes. kb Counseling: I had a detailed discussion with the patient and/or guardian regarding the historical points, exam findings, and any diagnostic results supporting the discharge/admit diagnosis, lab results, the need for outpatient follow up, a family practitioner, to return to the emergency department if symptoms worsen or persist or if there are any questions or concerns that arise at home. 07/09 14:48 Order name: Test, Urine; Complete Time: 15:54 kb 07/09 14:48 Order name: Urinalysis w/ reflexes; Complete Time: 15:25 kb 07/09 14:48 Order name: CBC with Diff; Complete Time: 15:25 kb 07/09 14:48 Order name: CMP; Complete Time: 15:54 kb 07/09 14:48 Order name: TSH; Complete Time: 15:54 kb 07/09 14:48 Order name: IV Start; Complete Time: 15:08 kb Administered Medications: No medications were administered Disposition Summary: 07/09/24 16:04 Discharge Ordered Notes: Location: Home kb Condition: Stable kb Diagnosis - Other malaise and fatigue kb Followup: kb - With: Emergency Department - When: As needed - Reason: Worsening of condition Followup: kb - With: Private Physician - When: 2 - 3 days - Reason: Recheck today's complaints, Continuance of care, Re-evaluation by your physician Discharge Instructions: - Discharge Summary Sheet kb - Fatigue kb - Viral Illness, Adult kb Forms: - Medication Reconciliation Form kb - Antibiotic Education kb - Prescription Opioid Use kb - Patient Portal Instructions kb - Leadership Thank You Letter kb Signatures: Dispatcher [employer] Bre Mercer FNP-C FNP-MIKAYLA Granados RN RN dd2 Corrections: (The following items were deleted from the chart) 14:49 14:49 Test, Urine+UC.LAB.BRZ ordered. EDMS EDMS 14:49 14:49 Urinalysis+U.LAB.BRZ ordered. EDMS EDMS 14:49 14:49 CBC+H.LAB.BRZ ordered. EDMS EDMS 14:49 14:49 COMPREHENSIVE METABOLIC PANEL+C.LAB.BRZ ordered. EDMS EDMS 14:49 14:49 THYROID STIMULAT HORMONE+C.LAB.BRZ ordered. EDMS EDMS
--- NOTE | 2024-07-09 16:04 | ER ---
Nurse's Notes [facility] Name: Shelley Ritter Age: 48 yrs Sex: Female : 1975 Arrival Date: 07/09/2024 Time: 14:36 Bed 13 Private MD: Diagnosis: Other malaise and fatigue Presentation: 07/09 14:44 Chief complaint: Patient states: Pt c/o headache, bodyaches, cramping of the hands and dd2 feet and fatigue and stress. Coronavirus screen: At this time, the client does not indicate any symptoms associated with coronavirus-19. Ebola Screen: No symptoms or risks identified at this time. Initial Sepsis Screen: Does the patient meet any 2 criteria? No. Patient's initial sepsis screen is negative. Does the patient have a suspected source of infection? No. Patient's initial sepsis screen is negative. Risk Assessment: Do you want to hurt yourself or someone else? Patient reports no desire to harm self or others. Onset of symptoms is unknown. 14:44 Method Of Arrival: Ambulatory dd2 14:44 Acuity: HUGO 3 dd2 Triage Assessment: 14:46 General: Appears in no apparent distress. Behavior is anxious. Pain: Complains of pain dd2 in generalized bodyaches. GI: Reports vomiting. 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 - Infectious Disease History:: Denies. - Social history:: Smoking status: Patient reports the use of cigarette tobacco products, smokes one pack cigarettes per day. Reported history of juuling and/or vaping. Screenin:00 [facility] ED Fall Risk Assessment (Adult) History of falling in the last 3 months, me1 including since admission No falls in past 3 months (0 pts) Confusion or Disorientation No (0 pts) Intoxicated or Sedated No (0 pts) Impaired Gait No (0 pts) Mobility Assist Device Used No (0 pt) Altered Elimination No (0 pt) Score/Fall Risk Level 0 - 2 = Low Risk Maintained a safe environment, Provided non-skid footwear, Hourly rounding (assess needs \T\ fall precautionary measures) done. Abuse screen: Denies threats or abuse. Nutritional screening: No deficits noted. Tuberculosis screening: No symptoms or risk factors identified. Assessment: 15:00 General: Appears comfortable, well groomed, well developed, well nourished, Behavior is me1 cooperative, anxious, Reports Pt c/o headache, bodyaches, cramping of the hands and feet and fatigue and stress. Pain: Complains of pain in head Pain does not radiate. Pain currently is 4 out of 10 on a pain scale. Quality of pain is described as aching, Pain began gradually, Is continuous. Neuro: Level of Consciousness is awake, alert, obeys commands, Oriented to person, place, time, situation, Appropriate for age. Neuro: Reports headache. Cardiovascular: Patient's skin is warm and dry. Respiratory: Airway is patent Trachea midline Respiratory effort is even, unlabored, Respiratory pattern is regular, symmetrical. GI: Abdomen is non-distended. GI: No signs and/or symptoms were reported involving the gastrointestinal system. : No signs and/or symptoms were reported regarding the genitourinary system. EENT: No signs and/or symptoms were reported regarding the EENT system. Derm: Skin is intact, is healthy with good turgor, Skin is pink, warm \T\ dry. Musculoskeletal: Reports pain in head body aches, cramping in hands and feet. Vital Signs: 14:44 BP 124 / 75; Pulse 84; Resp 18; Temp 97.1; Pulse Ox 99% ; Weight 64.86 kg; Height 5 ft. dd2 3 in. ; 15:30 BP 94 / 58; Pulse 72; Resp 16; Pulse Ox 99% ; me1 16:00 BP 96 / 58; Pulse 74; Resp 16; Temp 98.1; Pulse Ox 100% on R/A; me1 14:44 Body Mass Index 25.33 (64.86 kg, 160.02 cm) dd2 ED Course: 14:40 Patient arrived in ED. mr 14:40 Bre Magaña [facility]C [facility]. kb 14:40 Manoj Zurita MD is Attending Physician. kb 14:46 Triage completed. dd2 14:46 Arm band placed on left wrist. Patient placed in an exam room, on a stretcher, on pulse dd2 oximetry, Patient notified of wait time. 14:53 Lorene Linton, RN is Primary Nurse. me1 15:00 Patient has correct armband on for positive identification. Bed in low position. Call me1 light in reach. Side rails up X2. Provided Education on: POC. Verbalized understanding. . Client placed on continuous cardiac and pulse oximetry monitoring. NIBP monitoring applied. Pulse ox on. NIBP on. Warm blanket given. 15:00 No provider procedures requiring assistance completed. me1 15:08 CMP Sent. me1 15:08 CBC with Diff Sent. me1 15:08 Test, Urine Sent. me1 15:08 Urinalysis w/ reflexes Sent. me1 15:08 TSH Sent. me1 15:08 Initial lab(s) drawn, by me, sent to lab. Urine collected: clean catch specimen, clear. me1 Inserted saline lock: 22 gauge in right antecubital area, using aseptic technique. 16:10 IV discontinued, intact, bleeding controlled, No redness/swelling at site. Pressure me1 dressing applied. Administered Medications: No medications were administered Medication: 15:00 VIS not applicable for this client. me1 Outcome: 16:04 Discharge ordered by . óscar 16:10 Discharged to home ambulatory, with friend, [facility] 16:10 Condition: stable 16:10 Discharge instructions given to patient, friend, Instructed on discharge instructions, follow up and referral plans. Demonstrated understanding of instructions, follow-up care, 16:11 Patient left the ED. me1 Signatures: Bre Magaña, CORNER CUTTER MACHINE OPERATOR-C CORNER CUTTER MACHINE OPERATOR-CkEmilee Perkins, Reg Reg mr Lorene Linton, RN RN me1 MIKAYLA RAMIREZ RN RN dd2 Corrections: (The following items were deleted from the chart) 15:45 14:44 Chief complaint: Patient states: Pt c/o headache, bodyaches, cramping of the me1 hands and feet and fatigue and stress. dd2
[2024-07-09 16:40] VITALS: BP 96/58; TEMP 98.1; O2SAT 100
== END 2024-07-09 16:11 | disposition home or self-care (01) ==
LOC: ER 14:36
DX: R53.81 Other malaise (principal); R53.83 Other fatigue; E03.9 Hypothyroidism, unspecified; F17.210 Nicotine dependence, cigarettes, uncomplicated
CPT/HCPCS: 36415; 80053; 81001; 81025; 84443; 85025

== ENCOUNTER 2025-01-22 11:07 | Emergency (ER) | payer SELFPAY ==
--- NOTE | 2025-01-22 12:40 | RAD REPORT ---
EXAMINATION: XR Foot Left 3 View CLINICAL INDICATION: Female, 49 years old. [facility] MAIN misstep, pain to left lateral foot Bed Name: 17 TECHNIQUE: 3 view radiographs of the left foot were obtained. COMPARISON: No prior exam. FINDINGS: No evidence of fracture or dislocation. Normal alignment. No evidence of arthropathy or oth er focal bone lesion. Soft tissues are unremarkable. No soft tissue swelling. No significant degenerative changes. IMPRESSION: No acute or significant abnormalities.
--- NOTE | 2025-01-22 13:09 | ER ---
Nurse's Notes [facility] Name: Shelley Ritter Age: 49 yrs Sex: Female : 1975 Arrival Date: 01/22/2025 Time: 11:07 Bed 17 Private MD: Diagnosis: Abrasion, left foot;Contusion of left foot Presentation: 01/22 11:20 Chief complaint: Left foot pain after fall on jetties last night. Unable to bear hb weight. Coronavirus screen: At this time, the client does not indicate any symptoms associated with coronavirus-19. Ebola Screen: No symptoms or risks identified at this time. Initial Sepsis Screen: Does the patient meet any 2 criteria? No. Patient's initial sepsis screen is negative. Does the patient have a suspected source of infection? No. Patient's initial sepsis screen is negative. Risk Assessment: Do you want to hurt yourself or someone else? Patient reports no desire to harm self or others. Onset of symptoms was January 21, 2025. 11:20 Method Of Arrival: Wheelchair hb 11:20 Acuity: HUGO 4 hb Triage Assessment: 12:05 General: Appears in no apparent distress. Behavior is calm, cooperative. Pain: kj2 Complains of pain in left foot. 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 - Infectious Disease History:: Denies. - Social history:: Smoking status: Patient denies any tobacco usage or history of. - Family history:: not pertinent. - Hospitalizations: : No recent hospitalization is reported. Screenin:05 [facility] ED Fall Risk Assessment (Adult) History of falling in the last 3 months, kj2 including since admission Yes- single mechanical fall (1 pt) Confusion or Disorientation No (0 pts) Intoxicated or Sedated No (0 pts) Impaired Gait Yes (1 pt) Mobility Assist Device Used Yes (1 pt) Altered Elimination Yes (1 pt) Score/Fall Risk Level 3 or more points = High Risk Maintained a safe environment, Hourly rounding (assess needs \T\ fall precautionary measures) done. Abuse screen: Denies threats or abuse. Denies injuries from another. Nutritional screening: No deficits noted. Tuberculosis screening: No symptoms or risk factors identified. 13:37 [facility] ED Fall Risk Assessment (Adult) History of falling in the last 3 months, kj2 including since admission. Assessment: 11:19 General: Behavior is anxious, restless. Pain: Complains of pain in left foot Pain began ap3 1 day ago. Neuro: Level of Consciousness is awake, alert, obeys commands, Oriented to person, place, time, situation. Cardiovascular: Patient's skin is warm and dry. Respiratory: Airway is patent Respiratory effort is even, unlabored. Musculoskeletal: Reports pain in left foot. 12:05 Reassessment: Patient appears in no apparent distress at this time. Patient and/or kj2 family updated on plan of care and expected duration. Pain level reassessed. Patient is alert, oriented x 3, equal unlabored respirations, skin warm/dry/pink. 13:05 Reassessment: Patient appears in no apparent distress at this time. Patient and/or kj2 family updated on plan of care and expected duration. Pain level reassessed. Patient is alert, oriented x 3, equal unlabored respirations, skin warm/dry/pink. 13:40 Reassessment: Patient appears in no apparent distress at this time. Patient and/or kj2 family updated on plan of care and expected duration. Pain level reassessed. Patient is alert, oriented x 3, equal unlabored respirations, skin warm/dry/pink. Vital Signs: 11:20 BP 111 / 78; Pulse 94; Resp 18; Temp 97.8; Pulse Ox 100% on R/A; Pain 10/10; hb 12:10 BP 116 / 68; Pulse 70; Resp 18; Temp 98.2; Pulse Ox 100% on R/A; kj2 13:10 BP 114 / 72; Pulse 74; Resp 18; Temp 98; Pulse Ox 100% on R/A; kj2 11:20 Pain Scale: Adult hb ED Course: 11:12 Patient arrived in ED. cj3 11:14 Umesh Herrera MD is Attending Physician. rn 11:19 Loree Baird, VIJAY is Primary Nurse. ap3 11:22 Triage completed. hb 11:22 Arm band placed on. hb 12:05 Patient has correct armband on for positive identification. Bed in low position. Call kj2 light in reach. Provided Education on: call light. 12:13 XRAY Foot LEFT 3 View In Process Unspecified. EDMS 13:39 No provider procedures requiring assistance completed. kj2 13:40 Patient did not have IV access during this emergency room visit. kj2 Administered Medications: 13:50 Drug: Ketorolac IM 15 mg IM once Route: IM; Site: right vastus lateralis; kj2 13:50 Follow up: Response: Medication administered at discharge. kj2 Medication: 13:39 VIS not applicable for this client. kj2 Outcome: 13:09 Discharge ordered by . rn 13:40 Discharged to home via wheelchair, kj2 13:40 Condition: stable 13:40 Discharge instructions given to patient, Instructed on discharge instructions, follow up and referral plans. Demonstrated understanding of instructions, follow-up care, 13:51 Patient left the ED. kj2 Signatures: Dispatcher [employer] EDMS Umesh Herrera MD MD rn Baxter, Heather, RN RN Loree Baird RN RN ju3 Viola Bingham RN RN kj2 Kathrin Morgan 3
--- NOTE | 2025-01-22 13:09 | EDPHYS ---
Physician Documentation [facility] Name: Shelley Ritter Age: 49 yrs Sex: Female : 1975 Arrival Date: 01/22/2025 Time: 11:07 Bed 17 Private MD: ED Physician Umesh Herrera HPI: 01/22 11:39 This 49 yrs old Female presents to ER via Wheelchair with complaints of foot injury and rn pain. 11:39 The patient presents with an injury, pain. Onset: The symptoms/episode began/occurred rn yesterday. Severity of symptoms: At their worst the symptoms were moderate, in the emergency department the symptoms are unchanged. Patient reports misstep while fishing, reports stepped in gap and rocks and twisted left foot. Patient reports pain along the lateral surface of the left foot. No ankle or proximal pain.. 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 - Infectious Disease History:: Denies. - Social history:: Smoking status: Patient denies any tobacco usage or history of. - Family history:: not pertinent. - Hospitalizations: : No recent hospitalization is reported. ROS: 11:39 MS/extremity: Positive for abrasion, contusion, pain, Negative for laceration, rn paresthesias, puncture, Exam: 11:39 Constitutional: This is a well developed, well nourished patient who is awake, alert, rn appears uncomfortable MS/ Extremity: Pulses equal, no cyanosis. Neurovascular intact. Tenderness along left lateral foot. No laceration. Small abrasions. No significant swelling. No tenderness of the ankle or proximal tib-fib/knee. Vital Signs: 11:20 BP 111 / 78; Pulse 94; Resp 18; Temp 97.8; Pulse Ox 100% on R/A; Pain 10/10; hb 12:10 BP 116 / 68; Pulse 70; Resp 18; Temp 98.2; Pulse Ox 100% on R/A; kj2 13:10 BP 114 / 72; Pulse 74; Resp 18; Temp 98; Pulse Ox 100% on R/A; kj2 11:20 Pain Scale: Adult hb MDM: 11:14 Medical Screening Exam initiated rn 13:08 Differential diagnosis: fracture, sprain, cellulitis. Data reviewed: vital signs, rn nurses notes, radiologic studies, plain films, and as a result, I will discharge patient. Counseling: I had a detailed discussion with the patient and/or guardian regarding the historical points, exam findings, and any diagnostic results supporting the discharge/admit diagnosis, radiology results, the need for outpatient follow up, to return to the emergency department if symptoms worsen or persist or if there are any questions or concerns that arise at home. Special discussion: I discussed with the patient/guardian in detail that at this point there is no indication for admission to the hospital. It is understood, however, that if the symptoms persist or worsen the patient needs to return immediately for re-evaluation. ED course: X-ray foot images negative for acute fracture or dislocation per my interpretation.. 01/22 11:19 Order name: XRAY Foot LEFT 3 View; Complete Time: 13:02 rn Administered Medications: 13:50 Drug: Ketorolac IM 15 mg IM once Route: IM; Site: right vastus lateralis; kj2 13:50 Follow up: Response: Medication administered at discharge. kj2 Disposition Summary: 01/22/25 13:09 Discharge Ordered Notes: Location: Home rn Problem: new rn Symptoms: have improved rn Condition: Stable rn Diagnosis - Abrasion, left foot rn - Contusion of left foot rn Followup: rn - With: Private Physician - When: As needed - Reason: Recheck today's complaints, Re-evaluation by your physician Discharge Instructions: - Discharge Summary Sheet rn - Foot Contusion rn Forms: - Medication Reconciliation Form rn - Antibiotic internal medicine nurse practitioner - Prescription Opioid Use rn - Patient Portal Instructions rn - Leadership Thank You Letter rn Prescriptions: - Doxycycline Hyclate 100 mg Oral Tablet - take 1 tablet ORAL route once daily; 10 tablet; Refills: 0, Product Selection rn Permitted - Diclofenac Sodium 75 mg Oral tablet, delayed release (enteric coated) - take 1 tablet ORAL route 2 times per day; 14 tablet; Refills: 0, Product rn Selection Permitted Signatures: Dispatcher [employer] EDMS Umesh Herrera MD MD rn Baxter, Heather, RN RN hb Jordan, Krystal RN RN kj2 Corrections: (The following items were deleted from the chart) 11:19 11:19 Foot Left 3 View+[email or web address] ordered. EDMS EDMS
[2025-01-22] MEDS ORDERED: KETOROLAC 30 MG/ML INJ ONE (13:42)
[2025-01-22 14:37] VITALS: O2SAT 100
[2025-01-22 14:41] VITALS: BP 114/72; TEMP 98
== END 2025-01-22 13:51 | disposition home or self-care (01) ==
LOC: ER 11:07
DX: S90.812A Abrasion, left foot, initial encounter (principal); S90.32XA Contusion of left foot, initial encounter; W19.XXXA Unspecified fall, initial encounter; Y92.89 Other specified places as the place of occurrence of the external cause; E03.9 Hypothyroidism, unspecified; Z88.5 Allergy status to narcotic agent; Z91.018 Allergy to other foods
CPT/HCPCS: 96372; 99284